=== PATIENT | male | born 1960 | race Caucasian/White ===

== ENCOUNTER 2018-01-06 17:49 | Emergency (ER) | payer OTHER ==
[2018-01-06] MEDS ORDERED: KETOROLAC TROMETHAMINE 30 MG/1 ML VIAL IVPUSH ONE (17:56)
--- NOTE | 2018-01-06 17:59 | PDOC ---
Attending Attestation - Resident Resident Name: Edouard Woods - ED Attending Attestation I have performed the following: I have examined & evaluated the patient, The case was reviewed & discussed with the resident, I agree w/resident's findings & plan, Exceptions are as noted - HPI HPI: 57 yo M history kidney stones presents with 1 hour of intermittent colicky L groin pain radiating to low back. Occurred while driving, became severe, then improved. Denies dysuria, N/V, hematuria. Last kidney stone was ~4 years ago, required lithotripsy, as it did not pass spontaneously. Previous stone had to be retrieved. - Physicial Exam PE: GENERAL: Awake, alert, and fully oriented, in no acute distress. Appears uncomfortable HEAD: No signs of trauma EYES: PERRLA, EOMI, sclera anicteric, conjunctiva clear ENT: Auricles normal inspection, hearing grossly normal, nares patent, oropharynx clear without exudates. Moist mucosa NECK: Normal ROM, supple, no lymphadenopathy, JVD, or masses LUNGS: Breath sounds equal, clear to auscultation bilaterally. No wheezes, and no crackles HEART: Regular rate and rhythm, normal S1 and S2, no murmurs, rubs or gallops ABDOMEN: Soft, +L mid-abdominal tenderness, normoactive bowel sounds. No guarding, no rebound. No masses. +L CVAT. EXTREMITIES: Normal range of motion, no edema. No clubbing or cyanosis. No cords, erythema, or tenderness NEUROLOGICAL: Cranial nerves II through XII grossly intact. Normal speech, normal gait SKIN: Warm, Dry, normal turgor, no rashes or lesions noted. - Medical Decision Making Symptoms are consistent with nephrolithiasis. Will send labs, give IVF and toradol. Sono obtained, as last imaging was a few years ago.
--- NOTE | 2018-01-06 18:03 | PDOC ---
History of Present Illness - History of Present Illness Initial Comments: The patient anh 57M with a history of anxiety and kidney stones who presents with 1 hour of intermittent left inguinal/groin pain similar to kidney stones that he has had in the past that is described as sharp/burning pain that radiates towards his flank. The pain is currently 5/10 and was 10/10 at its worst. The patient denies fevers/chills, chest pain, SOB, hematuria, or cloudy urine. 01/06/18 17:57 <Edouard Woods - Last Filed: 01/06/18 19:07> <Margie Cooper - Last Filed: 01/06/18 23:48> - General Chief Complaint: Urinary Problem Stated Complaint: KIDNEY STONE Time Seen by Provider: 01/06/18 17:53 Past History <Edouard Woods - Last Filed: 01/06/18 19:07> <Margie Cooper - Last Filed: 01/06/18 23:48> - Past Medical History Allergies/Adverse Reactions: Allergies Allergy/AdvReac Type Severity Reaction Status Date / Time No Known Allergies Allergy Verified 01/06/18 17:52 Home Medications: Ambulatory Orders Atorvastatin Ca [Lipitor] 5 mg PO HS 01/06/18 Escitalopram Oxalate [Lexapro -] 5 mg PO DAILY 01/06/18 Oxycodone HCl/Acetaminophen [Percocet 5/325 -] 2 tab PO Q8H #12 tablet MDD 6 Review of Systems - Review of Systems Able to Perform ROS?: Yes Comments:: GENERAL/CONSTITUTIONAL: No fever or chills. No weakness HEAD, EYES, EARS, NOSE AND THROAT: No change in vision. No ear pain or discharge. No sore throat CARDIOVASCULAR: No chest pain or shortness of breath RESPIRATORY: No cough, wheezing, or hemoptysis GASTROINTESTINAL: No nausea, vomiting, diarrhea or constipation GENITOURINARY: per HPI MUSCULOSKELETAL: No joint or muscle swelling or pain. No neck or back pain SKIN: No rash NEUROLOGIC: No headache, vertigo, loss of consciousness, or change in strength/ sensation ENDOCRINE: No increased thirst. No abnormal weight change HEMATOLOGIC/LYMPHATIC: No anemia, easy bleeding, or history of blood clots ALLERGIC/IMMUNOLOGIC: No hives or skin allergy 01/06/18 18:04 Is the patient limited Lithuanian proficient: No <Edouard Woods - Last Filed: 01/06/18 19:07> *Physical Exam - Physical Exam Comments: GENERAL: Awake, alert, and fully oriented, in no acute distress HEAD: No signs of trauma, normocephalic, atraumatic EYES: PERRL, EOMI, sclera anicteric, conjunctiva clear ENT: Hearing grossly normal, nares patent, oropharynx clear without exudates. Moist mucosa NECK: Normal ROM, supple, no lymphadenopathy LUNGS: No distress, speaks full sentences, clear to auscultation bilaterally HEART:Regular rate and rhythm, normal S1 and S2, no murmurs appreciated, peripheral pulses normal and equal bilaterally ABDOMEN: Soft, mild R inguinal TTP, normoactive bowel sounds. No guarding, no rebound EXTREMITIES : Normal inspection, Normal range of motion, no edema. No clubbing or cyanosis NEUROLOGICAL: Cranial nerves II through XII grossly intact. Normal speech, normal gait, no focal sensorimotor deficits 01/06/18 19:12 <Edouard Woods - Last Filed: 01/06/18 19:07> - Vital Signs Last Vital Signs Temp Pulse Resp BP Pulse Ox 98.4 F 69 20 136/89 99 01/06/18 17:52 01/06/18 17:52 01/06/18 17:52 01/06/18 17:52 01/06/18 17:52 <Margie Cooper - Last Filed: 01/06/18 23:48> ED Treatment Course - LABORATORY CBC & Chemistry Diagram: 01/06/18 18:42 01/06/18 18:42 <Edouard Woods - Last Filed: 01/06/18 19:07> - LABORATORY CBC & Chemistry Diagram: 01/06/18 18:42 01/06/18 18:42 - ADDITIONAL ORDERS Additional order review: Laboratory Results 01/06/18 01/06/18 18:42 18:42 Sodium 138 Potassium 3.6 Chloride 102 Carbon Dioxide 25 Anion Gap 11 BUN 28 H Creatinine 1.2 Creat Clearance w eGFR > 60 Random Glucose 114 H Calcium 9.2 Total Bilirubin 0.6 AST 25 ALT 11 Alkaline Phosphatase 48 Total Protein 6.6 Albumin 4.2 Urine Color Yellow Urine Appearance Clear Urine pH 7.0 Ur Specific [place] 1.020 Urine Protein Negative Urine Glucose (UA) Negative Urine Ketones Negative Urine Blood 2+ H Urine Nitrite Negative Urine Bilirubin Negative Urine Urobilinogen 0.2 Ur Leukocyte Esterase Negative Urine RBC 30-50 Urine WBC 0-2 Urine Bacteria Few 01/06/18 18:42 RBC 4.33 MCV 89.5 MCHC 33.7 RDW 13.0 MPV 9.0 Neutrophils % 67.3 Lymphocytes % 22.9 Monocytes % 7.1 Eosinophils % 1.9 Basophils % 0.8 - Medications Given in the ED: ED Medications Discontinued Medications Generic Name Dose Route Start Last Admin Trade Name Freq PRN Reason Stop Dose Admin Ketorolac Tromethamine 30 mg 01/06/18 17:56 01/06/18 18:19 Toradol Injection - IVPUSH 01/06/18 17:57 30 mg ONCE ONE Administration <Margie Cooper - Last Filed: 01/06/18 23:48> Medical Decision Making - Medical Decision Making The patient is a 57M who presents w/ 1hr of left inguinal/flank pain Ddx: UTI, nephrolithiasis ED Course UA, labs 1L NS Toradol 30mg IV once 01/06/18 18:08 <Edouard Woods - Last Filed: 01/06/18 19:07> - Medical Decision Making 01/06/18 22:43 Patient Name: CASSANDRA FARRAR THIS IS A PRELIMINARY REPORT FROM [facility] DATE OF SERVICE: 2018-01-06 20:04:44 IMAGES: 33 EXAM: KIDNEY / RENAL US HISTORY: Left flank pain COMPARISON: None. FINDINGS: The kidneys are normal in size and echogenicity. Cortical thickness is within normal limits bilaterally No hydronephrosis or stones visualized in either kidney. There are 2 mid and upper pole cysts in the left kidney the larger in the upper pole measures 2.0 cm. 1.9 cm cyst in the mid left kidney with internal calcifications. The bladder was not imaged THIS DOCUMENT HAS BEEN ELECTRONICALLY SIGNED 01/06/18 23:48 Pt asked to follow with Dr. Castlelon <Margie Cooper - Last Filed: 01/06/18 23:48> *DC/Admit/Observation/Transfer - Discharge Dispostion Decision to Admit order: No <Edouard Woods - Last Filed: 01/06/18 19:07> <Margie Cooper - Last Filed: 01/06/18 23:48> Diagnosis at time of Disposition: Nephrolithiasis - Discharge Dispostion Disposition: HOME Condition at time of disposition: Improved - Prescriptions Prescriptions: Oxycodone HCl/Acetaminophen [Percocet 5/325 -] 2 tab PO Q8H #12 tablet MDD 6 - Referrals Referrals: Vinny Gallego [Non Staff, Medical] - Bhavik Castellon MD [Staff Physician] - - Patient Instructions Printed Discharge Instructions: Kidney Stones -- Adult - Post Discharge Activity Forms/Work/School Notes: Back to Work
[2018-01-06 18:07] VITALS: BP 136/89; PULSE 69; TEMP 98.4; BMI 24.0
[2018-01-06] MEDS ORDERED: KETOROLAC TROMETHAMINE 30 MG/1 ML VIAL ONE (18:17)
[2018-01-06 18:53] LABS: URINE APPEARANCE Clear; URINE BILIRUBIN Negative (NEGATIVE); URINE COLOR Yellow; URINE GLUCOSE (UA) Negative (NEGATIVE); URINE KETONE Negative (NEGATIVE); URINE LEUK ESTERASE Negative (NEGATIVE); URINE NITRITE Negative (NEGATIVE); URINE PROTEIN Negative (NEGATIVE); URINE UROBILINOGEN 0.2 (0.2-1.0)
[2018-01-06 18:57] LABS: BASO % 0.8 % (0-2.0); EOS % 1.9 % (0-4.5); HEMATOCRIT 38.8 % (35.4-49); HEMOGLOBIN 13.1 GM/dl (11.7-16.9); LYMPH % 22.9 % (8-40); MCH 30.2 pg (25.7-33.7); MCHC 33.7 g/dl (32.0-35.9); MEAN CELL VOLUME 89.5 fl (80-96); MONO % 7.1 % (3.8-10.2); NEUT % 67.3 % (42.8-82.8); PLATELET COUNT 196 K/MM3 (134-434); RBC 4.33 M/mm3 (4.00-5.60); WHITE BLOOD COUNT 8.7 K/mm3 (4.0-10.8)
[2018-01-06 19:10] LABS: ALBUMIN 4.2 g/dl (3.5-5.0); ALK PHOS 48 U/L (32-92); ANION GAP 11 MMOL/L (8-16); BILIRUBIN,TOTAL 0.6 mg/dl (0.2-1.0); BLOOD UREA NITROGEN 28 mg/dl (7-18); CALCIUM 9.2 mg/dl (8.4-10.2); CHLORIDE 102 mmol/L (98-107); CO2 25 mmol/L (22-28); CREATININE 1.2 mg/dl (0.6-1.3); GLUCOSE,RANDOM 114 mg/dl (74-106); POTASSIUM 3.6 mmol/L (3.5-5.1); SGOT/AST 25 U/L (10-42); SGPT/ALT 11 U/L (10-40); SODIUM 138 mmol/L (136-145); TOT PROT 6.6 g/dl (6.4-8.3)
[2018-01-06 19:33] LABS: URINE BACTERIA FEW /hpf (NEGATIVE); URINE RBC 30-50 /hpf (0-3); URINE WBC 0-2 (0-2)
[2018-01-06] MEDS ORDERED: morphine SULFATE 4 MG/ML VIAL ONE (21:02)
[2018-01-06] MEDS ORDERED: morphine CARPU-JECT 2 MG/1 ML DISP.SYRIN IVPUSH ONE (21:02)
== END 2018-01-06 21:31 | disposition home or self-care (01) ==
LOC: FER 17:49
PROC: 3E0333Z Introduction of Anti-inflammatory into Peripheral Vein, Percutaneous Approach (ICD-10-PCS; principal; 2018-01-06)
PROC: 3E033NZ Introduction of Analgesics, Hypnotics, Sedatives into Peripheral Vein, Percutaneous Approach (ICD-10-PCS; 2018-01-06)
DX: N20.0 Calculus of kidney (principal)
CPT/HCPCS: 36415; 76775-TC; 80053; 81003; 81015; 85025; 87086; 99282-25

== ENCOUNTER 2020-08-07 21:27 | Emergency (ER) | payer OTHER ==
[2020-08-07 21:33] VITALS: BP 159/95; PULSE 53; TEMP 97.4; BMI 24.0
[2020-08-07] MEDS ORDERED: KETOROLAC TROMETHAMINE 30 MG/1 ML VIAL IVPUSH ONE (21:34)
[2020-08-07] MEDS ORDERED: KETOROLAC TROMETHAMINE 30 MG/1 ML VIAL ONE (21:44)
[2020-08-07] MEDS ORDERED: SODIUM CHLORIDE 1,000 ML IV SCH (21:45)
[2020-08-07 22:01] LABS: BASO % 2.4 % (0-2.0); EOS % 4.6 % (0-4.5); HEMATOCRIT 40.5 % (35.4-49); HEMOGLOBIN 13.6 GM/dl (11.7-16.9); LYMPH % 36.1 % (8-40); MCH 29.6 pg (25.7-33.7); MCHC 33.7 g/dl (32.0-35.9); MEAN PLT VOLUME 7.9 fl (7.5-11.1); MONO % 8.9 % (3.8-10.2); PLATELET COUNT 195 K/MM3 (134-434); RDW 13.4 % (11.9-15.9); WHITE BLOOD COUNT 5.9 K/mm3 (4.0-10.8)
[2020-08-07 22:13] LABS: ALBUMIN 4.3 g/dl (3.4-5.0); BILIRUBIN,TOTAL 0.6 mg/dl (0.2-1); CALCIUM 9.1 mg/dl (8.5-10); CREATININE 1.3 mg/dl (0.55-1.3); TOT PROT 6.9 g/dl (6.4-8.2)
[2020-08-07] MEDS ORDERED: ONDANSETRON *ODT* 4 MG TABLET SL ONE (23:12)
[2020-08-07] MEDS ORDERED: ONDANSETRON *ODT* 4 MG TABLET ONE (23:15)
== END 2020-08-07 23:18 | disposition home or self-care (01) ==
LOC: FER 21:27
PROC: 3E0333Z Introduction of Anti-inflammatory into Peripheral Vein, Percutaneous Approach (ICD-10-PCS; principal; 2020-08-07)
DX: N20.0 Calculus of kidney (principal)
CPT/HCPCS: 36415; 74176-TC; 80053; 81003; 81015; 85025; 99284-25; Q0162

== ENCOUNTER 2020-10-25 04:27 | Inpatient (IN) | payer OTHER ==
[2020-10-25 04:33] VITALS: BMI 24.3
[2020-10-25 06:09] LABS: BASO % 0.5 % (0-2.0); EOS % 1.3 % (0-4.5); HEMATOCRIT 41.8 % (35.4-49); LYMPH % 10.2 % (8-40); MCH 29.9 pg (25.7-33.7); MCHC 33.6 g/dl (32.0-35.9); MEAN CELL VOLUME 88.9 fl (80-96); MEAN PLT VOLUME 8.2 fl (7.5-11.1); MONO % 6.2 % (3.8-10.2); NEUT % 81.8 % (42.8-82.8); PLATELET COUNT 195 10^3/uL (134-434); RDW 14.4 % (11.9-15.9); WHITE BLOOD COUNT 11.2 K/mm3 (4.0-10.0)
[2020-10-25] MEDS ORDERED: PIPERACILLIN/TAZOB 4.5 GM 4.5 GM in DEXTROSE 5%-WATER 100 ML IVPB ONE (06:26)
[2020-10-25] MEDS ORDERED: SODIUM CHLORIDE 1,000 ML IV ONE (06:27)
[2020-10-25] MEDS ORDERED: ACETAMINOPHEN 1000 MG/100 ML VIAL (NON FORMULARY) IVPB ONE (06:27)
[2020-10-25 06:28] LABS: CALCIUM 9.1 mg/dL (8.5-10.1)
[2020-10-25 06:29] LABS: ALBUMIN 4.2 g/dl (3.4-5.0); BLOOD UREA NITROGEN 19.5 mg/dL (7-18)
[2020-10-25] MEDS ORDERED: ACETAMINOPHEN INJECTION 100 ML IVPB ONE ×2 (06:31→16:05)
[2020-10-25] MEDS ORDERED: PIPERACILLIN/TAZOBACTAM 4.5 GM VIAL IVPB ONE (06:31)
[2020-10-25 06:32] LABS: CREATININE 0.9 mg/dL (0.55-1.3)
[2020-10-25 06:33] LABS: BILIRUBIN,TOTAL 0.9 mg/dL (0.2-1); TOT PROT 7.3 g/dl (6.4-8.2)
[2020-10-25] MEDS ORDERED: ACETAMINOPHEN 1000 MG/100 ML VIAL (NON FORMULARY) IVPB PRN (09:24)
[2020-10-25] MEDS ORDERED: MORPHINE SULFATE 2 MG/ML VIAL IVPUSH PRN (09:25)
[2020-10-25] MEDS: LACTATED RINGERS SOLUTION 1,000 ML/1,000 ML INFUS.BAG IV SCH ×3 (09:37→17:57)
[2020-10-25] MEDS ORDERED: PIPERACILLIN/TAZOB 3.375 GM 3.375 GM in DEXTROSE 5%-WATER - 50 ML IVPB SCH (10:00)
[2020-10-25 10:12] LABS: EPITHELIAL CELLS RARE /hpf
[2020-10-25 10:56] LABS: INR 1.12 (0.82-1.09); PROTHROMBIN TIME (PATIENT) 12.4 SEC (10.2-13.0)
[2020-10-25 12:41] LABS: PH,URINE 6.5 (5.0-8.0); URINE APPEARANCE Clear; URINE BILIRUBIN Negative (NEGATIVE); URINE COLOR Yellow; URINE GLUCOSE (UA) Negative (NEGATIVE); URINE KETONE 1+ (NEGATIVE); URINE LEUK ESTERASE Negative (NEGATIVE); URINE NITRITE Negative (NEGATIVE); URINE PROTEIN Negative (NEGATIVE); URINE UROBILINOGEN 0.2 mg/dL (0.2-1.0)
[2020-10-25 12:46] LABS: EPI CELLS 2.4 /uL (0-25.1); HYALINE CASTS 0.25 /uL (0-3.1); URINE BACTERIA 9.3 /uL (0-1359); URINE RBC 16.7 /uL (0-23.9); URINE WBC 3.6 /uL (0-25.8)
[2020-10-25] MEDS ORDERED: SUCCINYLCHOLINE CHLORIDE 200 MG/10 ML SYRINGE ONE (13:45)
[2020-10-25] MEDS ORDERED: PROPOFOL 20 ML ONE ×2 (13:45→13:59)
[2020-10-25] MEDS ORDERED: PIPERACILLIN/TAZOBACTAM 3.375 GM VIAL IVPB ONE ×3 (13:49→17:34)
[2020-10-25] MEDS ORDERED: BUPIVACAINE HCL/PF 0.5% (5MG/ML) 10 ML VIAL ONE ×2 (13:50→15:11)
[2020-10-25] MEDS ORDERED: DEXAMETHASONE SOD PHOSPHATE 4 MG/1 ML VIAL ONE ×2 (14:08→14:45)
[2020-10-25] MEDS ORDERED: HYDROmorphone HCl 2 MG/ML VIAL ONE (14:26)
[2020-10-25] MEDS ORDERED: ROCURONIUM BROMIDE 50 MG/5 ML SYRINGE ONE (14:29)
[2020-10-25] MEDS ORDERED: GLYCOPYRROLATE 0.2 MG/1 ML VIAL ONE (14:45)
[2020-10-25] MEDS ORDERED: NEOSTIGMINE METHYLSULFATE 0.5 MG/ML - 10 ML MDV ONE (15:09)
[2020-10-25] MEDS ORDERED: NALOXONE HCL 0.4 MG/ML VIAL ONE (15:40)
[2020-10-25] MEDS: NALOXONE HCL 0.4 MG/ML VIAL IVPUSH PRN ×2 (15:42→15:45)
[2020-10-25] MEDS ORDERED: KETOROLAC TROMETHAMINE 30 MG/1 ML VIAL ONE (16:05)
[2020-10-25] MEDS ORDERED: DEXTROSE 5%-WATER - 50 ML IVPB ONE (17:34)
[2020-10-25] MEDS: PIPERACILLIN/TAZOB 3.375 GM 3.375 GM in DEXTROSE 5%-WATER - 50 ML IVPB SCH ×2 (17:42→17:58)
[2020-10-26] MEDS ORDERED: PIPERACILLIN/TAZOBACTAM 3.375 GM VIAL IVPB ONE ×2 (00:47→09:53)
[2020-10-26] MEDS ORDERED: DEXTROSE 5%-WATER - 50 ML IVPB ONE ×2 (00:47→09:53)
[2020-10-26] MEDS ORDERED: TAMSULOSIN HCL 0.4 MG CAP PO ONE (01:16)
[2020-10-26] MEDS: PIPERACILLIN/TAZOB 3.375 GM 3.375 GM in DEXTROSE 5%-WATER - 50 ML IVPB SCH ×2 (02:29→10:02)
[2020-10-26 09:30] LABS: BASO % 0.2 % (0-2.0); HEMOGLOBIN 12.8 GM/dL (11.7-16.9); MCH 29.7 pg (25.7-33.7); MCHC 32.8 g/dl (32.0-35.9); MEAN CELL VOLUME 90.5 fl (80-96); MEAN PLT VOLUME 7.6 fl (7.5-11.1); MONO % 6.7 % (3.8-10.2); NEUT % 87.1 % (42.8-82.8); PLATELET COUNT 186 10^3/uL (134-434); RBC 4.31 M/mm3 (4.00-5.60); RDW 14.5 % (11.9-15.9); WHITE BLOOD COUNT 11.3 K/mm3 (4.0-10.0)
[2020-10-26] MEDS ORDERED: PANTOPRAZOLE SODIUM 40 MG VIAL IVPUSH SCH (10:00)
[2020-10-26 10:31] LABS: ALBUMIN 3.8 g/dl (3.4-5.0); BILIRUBIN,TOTAL 0.7 mg/dL (0.2-1); BLOOD UREA NITROGEN 16.4 mg/dL (7-18); CALCIUM 8.9 mg/dL (8.5-10.1); MAGNESIUM 2.4 mg/dL (1.8-2.4); TOT PROT 6.9 g/dl (6.4-8.2)
[2020-10-26] MEDS ORDERED: MORPHINE SULFATE 2 MG/ML VIAL IVPUSH PRN (14:16)
[2020-10-26] MEDS ORDERED: ACETAMINOPHEN 1000 MG/100 ML VIAL (NON FORMULARY) IVPB PRN (14:16)
[2020-10-26] MEDS ORDERED: NALOXONE HCL 0.4 MG/ML VIAL IVPUSH PRN (14:16)
[2020-10-26 14:31] VITALS: BP 128/85; PULSE 70; TEMP 98
[2020-10-26] MEDS ORDERED: TAMSULOSIN HCL 0.4 MG CAP PO SCH ×2 (18:00→20:00)
[2020-10-26] MEDS ORDERED: PIPERACILLIN/TAZOB 3.375 GM 3.375 GM in DEXTROSE 5%-WATER - 50 ML IVPB SCH (18:00)
[2020-10-26] MEDS ORDERED: ENOXAPARIN NA (PORCINE) 40 MG/0.4 ML DISP.SYRIN SQ SCH ×2 (22:00)
[2020-10-27] MEDS ORDERED: PANTOPRAZOLE SODIUM 40 MG VIAL IVPUSH SCH (10:00)
== END 2020-10-26 17:20 | disposition home or self-care (01) | DRG 982 ==
LOC: FER 04:27 → J6S 06:36 → JICU 17:22 → J6S 10-26 14:10
PROVIDERS: ADMIT Internal Medicine; ATTEND Internal Medicine Pulmonary Disease
PROC: 0DTJ4ZZ Resection of Appendix, Percutaneous Endoscopic Approach (ICD-10-PCS; principal; 2020-10-25 12:00)
DX: J95.89 Other postprocedural complications and disorders of respiratory system, not elsewhere classified (principal); N13.8 Other obstructive and reflux uropathy; T41.45XA Adverse effect of unspecified anesthetic, initial encounter; K36 Other appendicitis; I10 Essential (primary) hypertension; I34.1 Nonrheumatic mitral (valve) prolapse; E78.5 Hyperlipidemia, unspecified; F32.9 Major depressive disorder, single episode, unspecified; R06.89 Other abnormalities of breathing; Y83.8 Other surgical procedures as the cause of abnormal reaction of the patient, or of later complication, without mention of misadventure at the time of the procedure; N40.0 Benign prostatic hyperplasia without lower urinary tract symptoms
CPT/HCPCS: 36415; 71045-TC-FY; 74177-TC; 80053; 80061; 81003; 81015; 83605; 83721; 83735; 85025; 85610; 87040; 87086; 88304-TC; 93005; 94010; 94760; 99285-25; C9803; J0131; Q9967; U0003; U0005